=== PATIENT | male | born 1960 | race Caucasian/White ===

== ENCOUNTER 2019-05-23 11:10 | Emergency (ER) | payer SELFPAY ==
--- NOTE | 2019-05-23 11:19 | NUR ---
ED Nurse Note: Called patient. Patient not in waiting room.
--- NOTE | 2019-05-23 11:29 | NUR ---
ED Nurse Note: Called patient. Patient not found in waiting room or outside ER waiting room.
--- NOTE | 2019-05-23 11:40 | NUR ---
ED Nurse Note: Gela from admitting dept called patient and no answered.
== END 2019-05-23 12:00 | disposition left against medical advice (07) ==
LOC: EMR 11:52
DX: Z53.21 Procedure and treatment not carried out due to patient leaving prior to being seen by health care provider (principal)